=== PATIENT | female | born 1935 | race Caucasian/White ===

== ENCOUNTER 2018-02-12 17:00 | Observation (INO) | payer OTHER ==
[2018-02-12 18:16] VITALS: BMI 25.0
[2018-02-12] MEDS ORDERED: VANCOMYCIN 1,000 MG in DEXTROSE 5%-WATER - 250 ML IVPB ONE (18:57)
[2018-02-12] MEDS ORDERED: PIPERACILLIN/TAZOB 3.375 GM 3.375 GM in DEXTROSE 5%-WATER - 50 ML IVPB ONE (18:57)
--- NOTE | 2018-02-12 18:57 | PDOC ---
History of Present Illness - General Chief Complaint: Vomiting/Diarrhea Stated Complaint: FEVER, NAUSEA, DIARRHEA. CHEMOTHERAPY Time Seen by Provider: 02/12/18 17:59 History Source: Patient Exam Limitations: No Limitations - History of Present Illness Initial Comments: 02/12/18 18:44 82 yo F with a hx of HTN, right leg DVT (Nov 2017; on xarelto) and Stage 4 metastatic cancer disease (unknown origin, dx in Sep 2016, on Gemcitabine since q 2 weeks next dose tomorrow, followed by Dr. Cristy Rebollar [facility]) presents to the emergency department with fever, dysuria, and diarrhea. Per the patient, she states she has been having fever for the past 1-2 days with a temperature at 101F. In addition, she has been having dysuria that has been ongoing for 1 week with reported improvement. She began having diarrhea today with poor appetite and PO intake since yesterday. The patient contacted [facility] Snyder and they relayed that they would like a fever work up and be contacted afterwords (number provided was [phone]). Denies the following: headaches, visual changes, ears nose throat pain, chest pain, SOB, nausea, vomiting, abdominal pain, hematuria, hematochezia, and increase leg pain. Did not take home dose of zarelto and benicar today. Allergies: oxalipatin Social: Denies tobacco, alcohol, and substance abuse Past History - Past Medical History Allergies/Adverse Reactions: Allergies Allergy/AdvReac Type Severity Reaction Status Date / Time oxaliplatin Allergy Severe Swelling Verified 02/12/18 18:08 Home Medications: Ambulatory Orders Olmesartan Medoxomil [Benicar -] 40 mg PO DAILY 02/21/15 Gemcitabine HCl 02/12/18 Nitrofurantoin Monohyd/M-Cryst [Macrobid -] 100 mg PO BID #14 capsule 02/12/18 Rivaroxaban [Xarelto] 2.5 mg PO DAILY 02/12/18 Anemia: No Asthma: No Cancer: Yes (STAGE 4 METASTATIC ABDOMINAL CANCER) Cardiac Disorders: No CVA: No COPD: No CHF: No DVT: Yes (RIGHT LEG) Dementia: No Diabetes: No GI Disorders: No Disorders: No HTN: Yes Hypercholesterolemia: No Liver Disease: No Seizures: No Thyroid Disease: No - Surgical History Abdominal Surgery: Yes Appendectomy: Yes (1956) Cardiac Surgery: No Cholecystectomy: Yes (MANY YRS AGO) Lung Surgery: No Neurologic Surgery: No Orthopedic Surgery: Yes (LEFT TKR 06/2013/RIGHT ROTATOR CUFF REPAIR 2010) - Suicide/Smoking/Psychosocial Hx Smoking History: Never smoked Have you smoked in the past 12 months: No Hx Alcohol Use: Yes Drug/Substance Use Hx: No Substance Use Type: Alcohol Hx Substance Use Treatment: No Review of Systems - Review of Systems Able to Perform ROS?: Yes Is the patient limited Italian proficient: No Constitutional: Yes: Fever, Weakness. No: Chills, Diaphoresis HEENTM: No: Recent change in vision, Ear Pain, Nose Pain, Throat Pain, Mouth Pain Respiratory: No: Cough, Shortness of Breath, SOB with Exertion, Hemoptysis Cardiac (ROS): No: Chest Pain, Lightheadedness, Palpitations, Syncope, Chest Tightness ABD/GI: Yes: Diarrhea, Poor Appetite, Poor Fluid Intake. No: Constipated, Nausea, Rectal Bleeding, Vomiting, Abdominal cramping, Tarry Stools : Yes: Burning, Dysuria, Urgency. No: Flank Pain, Hematuria Musculoskeletal: No: Back Pain, Joint Pain, Neck Pain Integumentary: No: Bruising, Flushing, Lesions, Lumps, Rash Neurological: No: Headache, Numbness, Tingling, Tremors, Ataxia, Dizziness Psychiatric: No: Change in Appetite Endocrine: No: Unexplained Weight Gain Hematologic/Lymphatic: No: Anemia *Physical Exam - Vital Signs Last Vital Signs Temp Pulse Resp BP Pulse Ox 99.4 F 82 18 185/82 H 98 02/12/18 17:37 02/12/18 17:37 02/12/18 17:37 02/12/18 17:37 02/12/18 17:37 - Physical Exam General Appearance: Yes: Nourished, Appropriately Dressed. No: Apparent Distress, Intoxicated HEENT: positive: EOMI, ISHA, Normal Voice, Symmetrical, Pharynx Normal, Hearing Grossly Normal. negative: Pale Conjunctivae, Scleral Icterus (R), Scleral Icterus (L), Muffled/Hoarse voice, Pharyngeal Erythema, Tonsillar Exudate, Tonsillar Erythema, Nasal Congestion, Sinus Tenderness, Excessive drooling Neck: positive: Trachea midline. negative: Tender, Lymphadenopathy (R), Lymphadenopathy (L), Tender lateral, Tender midline Respiratory/Chest: positive: Lungs Clear, Normal Breath Sounds. negative: Chest Tender, Respiratory Distress, Accessory Muscle Use, Crackles, Rales, Rhonchi, Stridor, Wheezing, Hyperresonant Cardiovascular: positive: Regular Rhythm, Regular Rate, S1, S2. negative: Systolic Murmur Gastrointestinal/Abdominal: positive: Normal Bowel Sounds, Hernia (present and reducible). negative: Tender Lymphatic: negative: Adenopathy Musculoskeletal: positive: Normal Inspection. negative: CVA Tenderness, Vertebral Tenderness Extremity: positive: Normal Capillary Refill, Normal Range of Motion. negative : Normal Inspection (mild bilateral swelling in LE. ), Tender, Calf Tenderness, Erythema Integumentary: positive: Normal Color, Dry, Warm, Other (hot to the touch) Neurologic: positive: guide dog trainer II-XII NML intact, Fully Oriented, Alert, Normal Mood/ Affect, Normal Response, Motor Strength 5/5. negative: EOM Palsy, Sensory Deficit Moderate Sedation - Procedure Monitoring Vital Signs: Procedure Monitoring Vital Signs Temperature 99.4 F 02/12/18 17:37 Pulse Rate 82 02/12/18 17:37 Respiratory Rate 18 02/12/18 17:37 Blood Pressure 185/82 H 02/12/18 17:37 O2 Sat by Pulse Oximetry (%) 98 02/12/18 17:37 ED Treatment Course - LABORATORY CBC & Chemistry Diagram: 02/12/18 19:00 02/12/18 19:00 Medical Decision Making - Medical Decision Making 82 yo F with a hx of HTN, right leg DVT (Nov 2017; on xarelto) and Stage 4 metastatic cancer disease (unknown origin, dx in Sep 2016, on Gemcitabine since q 2 weeks next dose tomorrow, followed by Dr. Cristy Rebollar [facility]) presents to the emergency department with fever, dysuria, and diarrhea Initial vitals: Initial Vital Signs Temp Pulse Resp BP Pulse Ox 99.4 F 82 18 185/82 H 98 02/12/18 17:37 02/12/18 17:37 02/12/18 17:37 02/12/18 17:37 02/12/18 17:37 Work up: patient was presented to ED with referral from Dr. Rebollar her oncologist at [facility]. They requested a fever work up. patient admits to dysuria and fevers and diarrhea, likely source of fever from urine but will assess fever source from other sources. Laboratory Tests 02/12/18 02/12/18 02/12/18 19:00 19:00 19:00 WBC 8.9 RBC 2.98 L Hgb 9.6 L Hct 29.9 L MCV 100.3 H MCH 32.2 MCHC 32.0 RDW 15.9 H Plt Count 260 MPV 7.6 Absolute Neuts (auto) 6.6 Neutrophils % 72.6 Lymphocytes % 13.9 Monocytes % 12.6 H Eosinophils % 0.4 Basophils % 0.5 PT with INR 18.9 H INR 1.71 H PTT (Actin FS) 31.8 Sodium 132 L Potassium 3.9 Chloride 103 Carbon Dioxide 21 L Anion Gap 8 BUN 21 H Creatinine 1.1 Creat Clearance w eGFR 47.79 Random Glucose 91 Lactic Acid Calcium 8.8 Total Bilirubin 0.5 AST 18 ALT 15 Alkaline Phosphatase 83 Troponin I Total Protein 6.5 Albumin 3.4 L Urine Color Urine Appearance Urine pH Ur Specific [place] Urine Protein Urine Glucose (UA) Urine Ketones Urine Blood Urine Nitrite Urine Bilirubin Urine Urobilinogen Ur Leukocyte Esterase Urine RBC Urine WBC Ur Epithelial Cells Urine Bacteria Influenza A (Rapid) Influenza B (Rapid) 02/12/18 02/12/18 02/12/18 19:00 19:00 19:00 WBC RBC Hgb Hct MCV MCH MCHC RDW Plt Count MPV Absolute Neuts (auto) Neutrophils % Lymphocytes % Monocytes % Eosinophils % Basophils % PT with INR INR PTT (Actin FS) Sodium Potassium Chloride Carbon Dioxide Anion Gap BUN Creatinine Creat Clearance w eGFR Random Glucose Lactic Acid 0.7 Calcium Total Bilirubin AST ALT Alkaline Phosphatase Troponin I Cancelled < 0.03 Total Protein Albumin Urine Color Urine Appearance Urine pH Ur Specific [place] Urine Protein Urine Glucose (UA) Urine Ketones Urine Blood Urine Nitrite Urine Bilirubin Urine Urobilinogen Ur Leukocyte Esterase Urine RBC Urine WBC Ur Epithelial Cells Urine Bacteria Influenza A (Rapid) Influenza B (Rapid) 02/12/18 02/12/18 19:20 20:20 WBC RBC Hgb Hct MCV MCH MCHC RDW Plt Count MPV Absolute Neuts (auto) Neutrophils % Lymphocytes % Monocytes % Eosinophils % Basophils % PT with INR INR PTT (Actin FS) Sodium Potassium Chloride Carbon Dioxide Anion Gap BUN Creatinine Creat Clearance w eGFR Random Glucose Lactic Acid Calcium Total Bilirubin AST ALT Alkaline Phosphatase Troponin I Total Protein Albumin Urine Color Yellow Urine Appearance Cloudy Urine pH 5.5 Ur Specific [place] 1.015 Urine Protein 2+ H Urine Glucose (UA) Negative Urine Ketones Negative Urine Blood 3+ H Urine Nitrite Positive Urine Bilirubin Negative Urine Urobilinogen 0.2 Ur Leukocyte Esterase 3+ H Urine RBC 10-20 Urine WBC >100 Ur Epithelial Cells None seen Urine Bacteria 4+ Influenza A (Rapid) Negative Influenza B (Rapid) Negative Patient was signed out by Dr. Lucero to Dr. Dimas *DC/Admit/Observation/Transfer Diagnosis at time of Disposition: Dehydration UTI (urinary tract infection) Qualifiers: Urinary tract infection type: site unspecified Hematuria presence: without hematuria Qualified Code(s): N39.0 - Urinary tract infection, site not specified Diarrhea Qualifiers: Diarrhea type: unspecified type Qualified Code(s): R19.7 - Diarrhea, unspecified - Discharge Dispostion Disposition: AGAINST MEDICAL ADVICE Condition at time of disposition: Stable - Prescriptions Prescriptions: Nitrofurantoin Monohyd/M-Cryst [Macrobid -] 100 mg PO BID #14 capsule - Referrals Referrals: Cristy Garcia MD [Primary Care Provider] - - Patient Instructions Additional Instructions: Your leaving AGAINST MEDICAL ADVICE. By evening AGAINST MEDICAL ADVICE U except for anything adverse that may happen. Possible adverse outcome would could include but not limited to sepsis, permanent disability and . I sent a prescription to your pharmacy for Macrobid get the prescription filled and take it twice a day for 7 days. Call your oncologist Dr. Cristy Rebollar in the morning and get an appointment to follow-up with her as soon as possible. Return to the emergency department immediately with ANY new, persistent or worsening symptoms. Continue any medications as previously prescribed by your physician. You should follow up with your primary doctor as soon as possible regarding today's emergency department visit. . Please make sure your doctor reviews the results of your emergency evaluation. Thank you for coming to the Emergency Department today for your care. It was a pleasure to see you today. Please note that your evaluation is INCOMPLETE until you follow-up with your doctor. - Post Discharge Activity
[2018-02-12 19:17] LABS: BASO % 0.5 % (0-2.0); EOS % 0.4 % (0-4.5); HEMATOCRIT 29.9 % (32.4-45.2); HEMOGLOBIN 9.6 GM/dl (10.7-15.3); LYMPH % 13.9 % (8-40); MCH 32.2 pg (25.7-33.7); MEAN CELL VOLUME 100.3 fl (80-96); MEAN PLT VOLUME 7.6 fl (7.5-11.1); MONO % 12.6 % (3.8-10.2); NEUT % 72.6 % (42.8-82.8); PLATELET COUNT 260 K/MM3 (134-434); RBC 2.98 M/mm3 (3.60-5.2); RDW 15.9 % (11.6-15.6); WHITE BLOOD COUNT 8.9 K/mm3 (4.0-10.8)
[2018-02-12] MEDS ORDERED: VANCOMYCIN 1,000 MG VIAL (RESTRICTED TO ID ONLY) ONE (19:22)
[2018-02-12] MEDS ORDERED: PIPERACILLIN/TAZOBACTAM 3.375 GM VIAL IVPB ONE (19:23)
[2018-02-12 19:31] LABS: ACTIVATED PTT 31.8 SECONDS (25.2-36.5)
[2018-02-12 19:33] LABS: PH,URINE 5.5 (4.5-8); URINE APPEARANCE Cloudy; URINE BILIRUBIN Negative (NEGATIVE); URINE COLOR Yellow; URINE GLUCOSE (UA) Negative (NEGATIVE); URINE KETONE Negative (NEGATIVE); URINE LEUK ESTERASE 3+ (NEGATIVE); URINE NITRITE Positive (NEGATIVE); URINE PROTEIN 2+ (NEGATIVE); URINE UROBILINOGEN 0.2 (0.2-1.0)
[2018-02-12 19:33] LABS: ALBUMIN 3.4 g/dl (3.5-5.0); ALK PHOS 83 U/L (32-92); ANION GAP 8 MMOL/L (8-16); BILIRUBIN,TOTAL 0.5 mg/dl (0.2-1.0); BLOOD UREA NITROGEN 21 mg/dl (7-18); CALCIUM 8.8 mg/dl (8.4-10.2); CHLORIDE 103 mmol/L (98-107); CO2 21 mmol/L (22-28); CREATININE 1.1 mg/dl (0.6-1.3); GLUCOSE,RANDOM 91 mg/dl (74-106); POTASSIUM 3.9 mmol/L (3.5-5.1); SGOT/AST 18 U/L (10-42); SGPT/ALT 15 U/L (10-40); SODIUM 132 mmol/L (136-145); TOT PROT 6.5 g/dl (6.4-8.3)
[2018-02-12 19:35] LABS: INR 1.71 (0.82-1.09); PROTHROMBIN TIME (PATIENT) 18.9 SEC (10.2-13.0)
[2018-02-12] MEDS ORDERED: SODIUM CHLORIDE 0.9% 500 ML INFUS.BAG IV ONE (19:36)
--- NOTE | 2018-02-12 19:36 | PDOC ---
Attending Attestation - Resident Resident Name: JuliaWiliam - ED Attending Attestation I have performed the following: I have examined & evaluated the patient, The case was reviewed & discussed with the resident, I agree w/resident's findings & plan - HPI HPI: 02/12/18 19:34 82 yo F with a hx of HTN, right leg DVT (Nov 2017; on xarelto) and Stage 4 metastatic cancer disease (unknown origin, dx in Sep 2016, likely abdominal origin s/p ex lap, on Gemcitabine since q 2 weeks next dose tomorrow, followed by Dr. Cristy Rebollar [facility]) presents to the emergency department with fever, dysuria, and diarrhea. +fever for the past 1-2 days with a temperature at 101F. In addition, she has been having dysuria and increased urinary urgency/frequency x 1 week. starting yesterday, nonbloody, watery diarrhea, and difficulty keeping up with PO intake - Physicial Exam PE: 02/12/18 19:35 NAD, warm to touch. neck supple, oral mucosa dry. RRR, lungs clear, abdomen soft NTND, no cvat. WWP, no edema. SHEIKH x4. left anterior chest wall port palpated - Medical Decision Making 02/12/18 19:35 hpi as documented VS here wnl, but historical fever and immunocompromised septic work up pending including CBC/chem, lactic, UA, urine cx, blood cx, cxr, influenza IV hydration/tylenol IV abx zosyn/vancomycin for empiric coverage s/o pending labs and workup, hydration and likely admit given immunocompromised state/fever, dehydration 02/12/18 19:37
[2018-02-12] MEDS ORDERED: ACETAMINOPHEN 1000 MG/100 ML VIAL (NON FORMULARY) IVPB ONE (19:37)
--- NOTE | 2018-02-12 19:38 | PDOC ---
*Physical Exam - Vital Signs Last Vital Signs Temp Pulse Resp BP Pulse Ox 99.4 F 82 18 185/82 H 98 02/12/18 17:37 02/12/18 17:37 02/12/18 17:37 02/12/18 17:37 02/12/18 17:37 ED Treatment Course - LABORATORY CBC & Chemistry Diagram: 02/12/18 19:00 02/12/18 19:00 - ADDITIONAL ORDERS Additional order review: Laboratory Results 02/12/18 02/12/18 02/12/18 19:20 19:00 19:00 PT with INR INR PTT (Actin FS) Sodium 132 L Potassium 3.9 Chloride 103 Carbon Dioxide 21 L Anion Gap 8 BUN 21 H Creatinine 1.1 Creat Clearance w eGFR 47.79 Random Glucose 91 Calcium 8.8 Total Bilirubin 0.5 AST 18 ALT 15 Alkaline Phosphatase 83 Troponin I Cancelled Total Protein 6.5 Albumin 3.4 L Urine Color Yellow Urine Appearance Cloudy Urine pH 5.5 Ur Specific [place] 1.015 Urine Protein 2+ H Urine Glucose (UA) Negative Urine Ketones Negative Urine Blood 3+ H Urine Nitrite Positive Urine Bilirubin Negative Urine Urobilinogen 0.2 Ur Leukocyte Esterase 3+ H 02/12/18 19:00 PT with INR 18.9 H INR 1.71 H PTT (Actin FS) 31.8 Sodium Potassium Chloride Carbon Dioxide Anion Gap BUN Creatinine Creat Clearance w eGFR Random Glucose Calcium Total Bilirubin AST ALT Alkaline Phosphatase Troponin I Total Protein Albumin Urine Color Urine Appearance Urine pH Ur Specific [place] Urine Protein Urine Glucose (UA) Urine Ketones Urine Blood Urine Nitrite Urine Bilirubin Urine Urobilinogen Ur Leukocyte Esterase 02/12/18 19:00 RBC 2.98 L MCV 100.3 H MCHC 32.0 RDW 15.9 H MPV 7.6 Neutrophils % 72.6 Lymphocytes % 13.9 Monocytes % 12.6 H Eosinophils % 0.4 Basophils % 0.5 - Medications Given in the ED: ED Medications Discontinued Medications Generic Name Dose Route Start Last Admin Trade Name Freq PRN Reason Stop Dose Admin Piperacillin Sod/Tazobactam 50 mls @ 100 mls/hr 02/12/18 18:57 02/12/18 19:25 Sod 3.375 gm/ Dextrose IVPB 02/12/18 19:26 100 mls/hr ONCE ONE Administration Protocol Progress Note - Progress Note Progress Note: Care of this patient was transferred to co from Dr. null at 1900 hrs. 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 Patient comes in complaining of nausea and diarrhea as well as fevers and urinary symptoms. Patient has a workup pending. Patient was seen by the medical historian who discussed patient's case with her oncologist who requested a septic workup be done. Patient most likely will need an observation admission for hydration and antibiotics. EKG shows normal sinus rhythm with a left axis deviation and old anterior septal [place] otherwise no acute ST-T wave changes Patient has normal white count with no left shift Patient's chemistries do show some mild dehydration with a B UN of 21 Patient's urinalysis is positive for urinary tract infection. Patient given IV vancomycin and Zosyn Discussed with the physician on-call for [facility] doctor Qiana, who agrees with a observation admission for some IV hydration, antibiotics and reassess patient in the morning to see how she is doing and patient will be placed in observation under the hospitalist service. 20:30 Patient's daughter does not want patient to be admitted to she prefers that she be able to take her home on some by mouth antibiotics and they will follow up with her doctor at [facility] in the morning. Daughter understands that in order to do that her mother has to sign out AGAINST MEDICAL ADVICE. Patient understands that leaving AGAINST MEDICAL ADVICE could result in a worsening of her conditions, sepsis and . Patient accepts responsibility for signing out AGAINST MEDICAL ADVICE. *DC/Admit/Observation/Transfer Diagnosis at time of Disposition: Dehydration UTI (urinary tract infection) Qualifiers: Urinary tract infection type: site unspecified Hematuria presence: without hematuria Qualified Code(s): N39.0 - Urinary tract infection, site not specified Diarrhea Qualifiers: Diarrhea type: unspecified type Qualified Code(s): R19.7 - Diarrhea, unspecified - Discharge Dispostion Disposition: AGAINST MEDICAL ADVICE Condition at time of disposition: Stable - Referrals Referrals: Cristy Garcia MD [Primary Care Provider] - - Patient Instructions Additional Instructions: Your leaving AGAINST MEDICAL ADVICE. By evening AGAINST MEDICAL ADVICE U except for anything adverse that may happen. Possible adverse outcome would could include but not limited to sepsis, permanent disability and . I sent a prescription to your pharmacy for Macrobid get the prescription filled and take it twice a day for 7 days. Call your oncologist Dr. Cristy Rebollar in the morning and get an appointment to follow-up with her as soon as possible. Return to the emergency department immediately with ANY new, persistent or worsening symptoms. Continue any medications as previously prescribed by your physician. You should follow up with your primary doctor as soon as possible regarding today's emergency department visit. . Please make sure your doctor reviews the results of your emergency evaluation. Thank you for coming to the Emergency Department today for your care. It was a pleasure to see you today. Please note that your evaluation is INCOMPLETE until you follow-up with your doctor. - Post Discharge Activity
[2018-02-12 19:52] LABS: EPI CELLS NONE SEEN /HPF; URINE BACTERIA 4+ /hpf (NEGATIVE); URINE WBC >100 (0-5)
[2018-02-12] MEDS ORDERED: ACETAMINOPHEN INJECTION 100 ML IVPB ONE (20:15)
[2018-02-12] MEDS ORDERED: SODIUM CHLORIDE 1,000 ML IV SCH (20:30)
--- NOTE | 2018-02-12 20:32 | HP ---
CHIEF COMPLAINT: PCP: HISTORY OF PRESENT ILLNESS: ER course was notable for: (1) (2) (3) Recent Travel: PAST MEDICAL HISTORY: PAST SURGICAL HISTORY: Social History: Smoking: Alcohol: Drugs: Family History: Allergies oxaliplatin Allergy (Severe, Verified 02/12/18 18:08) Swelling HOME MEDICATIONS: Home Medications Medication Instructions Recorded Olmesartan Medoxomil [Benicar -] 40 mg PO DAILY 02/21/15 Gemcitabine HCl 02/12/18 Rivaroxaban [Xarelto] 2.5 mg PO DAILY 02/12/18 REVIEW OF SYSTEMS CONSTITUTIONAL: Absent: fever, chills, diaphoresis, generalized weakness, malaise, loss of appetite, weight change HEENT: Absent: rhinorrhea, nasal congestion, throat pain, throat swelling, difficulty swallowing, mouth swelling, ear pain, eye pain, visual changes CARDIOVASCULAR: Absent: chest pain, syncope, palpitations, irregular heart rate, lightheadedness , peripheral edema RESPIRATORY: Absent: cough, shortness of breath, dyspnea with exertion, orthopnea, wheezing, stridor, hemoptysis GASTROINTESTINAL: Absent: abdominal pain, abdominal distension, nausea, vomiting, diarrhea, constipation, melena, hematochezia GENITOURINARY: Absent: dysuria, frequency, urgency, hesitancy, hematuria, flank pain, genital pain MUSCULOSKELETAL: Absent: myalgia, arthralgia, joint swelling, back pain, neck pain SKIN: Absent: rash, itching, pallor HEMATOLOGIC/IMMUNOLOGIC: Absent: easy bleeding, easy bruising, lymphadenopathy, frequent infections ENDOCRINE: Absent: unexplained weight gain, unexplained weight loss, heat intolerance, cold intolerance NEUROLOGIC: Absent: headache, focal weakness or paresthesias, dizziness, unsteady gait, seizure, mental status changes, bladder or bowel incontinence PSYCHIATRIC: Absent: anxiety, depression, suicidal or homicidal ideation, hallucinations. PHYSICAL EXAMINATION Vital Signs - 24 hr 02/12/18 02/12/18 17:37 19:30 Temperature 99.4 F 99.5 F Pulse Rate 82 Respiratory 18 Rate Blood Pressure 185/82 H O2 Sat by Pulse 98 Oximetry (%) GENERAL: Awake, alert, and fully oriented, in no acute distress. HEAD: Normal with no signs of trauma. EYES: Pupils equal, round and reactive to light, extraocular movements intact, sclera anicteric, conjunctiva clear. No lid lag. EARS, NOSE, THROAT: Ears normal, nares patent, oropharynx clear without exudates. Moist mucous membranes. NECK: Normal range of motion, supple without lymphadenopathy, JVD, or masses. LUNGS: Breath sounds equal, clear to auscultation bilaterally. No wheezes, and no crackles. No accessory muscle use. HEART: Regular rate and rhythm, normal S1 and S2 without murmur, rub or gallop. ABDOMEN: Soft, nontender, not distended, normoactive bowel sounds, no guarding, no rebound, no masses. No hepatomegaly or splenomegaly. MUSCULOSKELETAL: Normal range of motion at all joints. No bony deformities or tenderness. No CVA tenderness. UPPER EXTREMITIES: 2+ pulses, warm, well-perfused. No cyanosis. No clubbing. No peripheral edema. LOWER EXTREMITIES: 2+ pulses, warm, well-perfused. No calf tenderness. No peripheral edema. NEUROLOGICAL: Cranial nerves II-XII intact. Normal speech. Normal gait. PSYCHIATRIC: Cooperative. Good eye contact. Appropriate mood and affect. SKIN: Warm, dry, normal turgor, no rashes or lesions noted, normal capillary refill. Laboratory Results - last 24 hr 02/12/18 02/12/18 02/12/18 19:00 19:00 19:00 WBC 8.9 RBC 2.98 L Hgb 9.6 L Hct 29.9 L MCV 100.3 H MCH 32.2 MCHC 32.0 RDW 15.9 H Plt Count 260 MPV 7.6 Absolute Neuts (auto) 6.6 Neutrophils % 72.6 Lymphocytes % 13.9 Monocytes % 12.6 H Eosinophils % 0.4 Basophils % 0.5 PT with INR 18.9 H INR 1.71 H PTT (Actin FS) 31.8 Sodium 132 L Potassium 3.9 Chloride 103 Carbon Dioxide 21 L Anion Gap 8 BUN 21 H Creatinine 1.1 Creat Clearance w eGFR 47.79 Random Glucose 91 Calcium 8.8 Total Bilirubin 0.5 AST 18 ALT 15 Alkaline Phosphatase 83 Troponin I Total Protein 6.5 Albumin 3.4 L Urine Color Urine Appearance Urine pH Ur Specific [place] Urine Protein Urine Glucose (UA) Urine Ketones Urine Blood Urine Nitrite Urine Bilirubin Urine Urobilinogen Ur Leukocyte Esterase Urine RBC Urine WBC Ur Epithelial Cells Urine Bacteria 02/12/18 02/12/18 02/12/18 19:00 19:00 19:20 WBC RBC Hgb Hct MCV MCH MCHC RDW Plt Count MPV Absolute Neuts (auto) Neutrophils % Lymphocytes % Monocytes % Eosinophils % Basophils % PT with INR INR PTT (Actin FS) Sodium Potassium Chloride Carbon Dioxide Anion Gap BUN Creatinine Creat Clearance w eGFR Random Glucose Calcium Total Bilirubin AST ALT Alkaline Phosphatase Troponin I Cancelled < 0.03 Total Protein Albumin Urine Color Yellow Urine Appearance Cloudy Urine pH 5.5 Ur Specific [place] 1.015 Urine Protein 2+ H Urine Glucose (UA) Negative Urine Ketones Negative Urine Blood 3+ H Urine Nitrite Positive Urine Bilirubin Negative Urine Urobilinogen 0.2 Ur Leukocyte Esterase 3+ H Urine RBC 10-20 Urine WBC >100 Ur Epithelial Cells None seen Urine Bacteria 4+ ASSESSMENT/PLAN:
[2018-02-12 21:52] VITALS: BP 121/92; PULSE 95; TEMP 100.2
[2018-02-13] MEDS ORDERED: CEFTRIAXONE 1 GM in DEXTROSE 5%-WATER - 50 ML IVPB SCH (10:00)
--- NOTE | 2018-02-13 12:16 | EKG ---
Test Reason : Blood Pressure : / mmHG Vent. Rate : 096 BPM Atrial Rate : 096 BPM P-R Int : 202 ms QRS Dur : 124 ms QT Int : 354 ms P-R-T Axes : 077 -39 072 degrees QTc Int : 447 ms NORMAL SINUS RHYTHM LEFT AXIS DEVIATION ANTEROSEPTAL INFARCT , AGE UNDETERMINED ABNORMAL ECG NO PREVIOUS ECGS AVAILABLE Confirmed by ALCIRA SINGH MD ([id number]) on 02/13/2018 12:15:57 PM Referred By: MD LEWIS Confirmed By:ALCIRA SINGH MD
== END 2018-02-12 22:09 | disposition left against medical advice (07) ==
LOC: FER 17:00 → FM/S 20:05 → FER 22:09
PROVIDERS: ADMIT Internal Medicine; ATTEND Internal Medicine
PROC: 3E03329 Introduction of Other Anti-infective into Peripheral Vein, Percutaneous Approach (ICD-10-PCS; principal; 2018-02-12)
PROC: 3E0337Z Introduction of Electrolytic and Water Balance Substance into Peripheral Vein, Percutaneous Approach (ICD-10-PCS; 2018-02-12)
PROC: 3E033NZ Introduction of Analgesics, Hypnotics, Sedatives into Peripheral Vein, Percutaneous Approach (ICD-10-PCS; 2018-02-12)
DX: E86.0 Dehydration (principal); N39.0 Urinary tract infection, site not specified; R19.7 Diarrhea, unspecified; I10 Essential (primary) hypertension; I82.501 Chronic embolism and thrombosis of unspecified deep veins of right lower extremity; Z79.01 Long term (current) use of anticoagulants; C79.89 Secondary malignant neoplasm of other specified sites; Z96.651 Presence of right artificial knee joint; Z92.21 Personal history of antineoplastic chemotherapy
CPT/HCPCS: 36415; 71045-TC-FY; 80053; 81003; 81015; 83605; 84484; 85025; 85610; 85730; 87040; 87086; 87186; 87804; 93005; 96365; 96368; 96375; 99283-25; G0378; J0131

== ENCOUNTER 2018-02-28 19:38 | Inpatient (IN) | payer OTHER ==
--- NOTE | 2018-02-28 20:22 | PDOC ---
History of Present Illness - General History Source: Patient Exam Limitations: No Limitations - History of Present Illness Initial Comments: 02/28/18 22:00 A portion of this note was documented by scribe services under my direction. I have reviewed the details of the note, within reason, and agree with the documentation with the following case summary and management plan written by me. Patient treated in the ED. Nursing notes are reviewed and incorporated into the medical decision-making. Vital signs reviewed. Assessment and plan: This is an 82-year-old female who comes in with generalized weakness and fell secondary to generalized weakness. Patient fell and after she fell she was so weak she was unable to get up for about 45 minutes until she could get herself over to the phone and call a neighbor. Patient was brought in by EMS. Patient denies any injuries from the fall but is complaining of generalized weakness. Patient was noted to be febrile here in the emergency room on arrival and was recently treated for a urinary tract infection Workup initiated including head CT CBC, comp, blood cultures, urine culture, blood cultures, EKG, chest x-ray. EKG shows normal sinus rhythm at a rate of 95 there is a first-degree AV block Celexa axis deviation and incomplete right bundle branch block no acute ST-T wave changes. Chest x-ray no acute pathology heart does appear to be somewhat enlarged. Patient's white count was elevated with a left shift and her urine was positive for urinary tract infection Patient given ceftriaxone and will be placed in observation under the hospitalist service. 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 The patient reports she was trying to use the bathroom, when she had a sudden onset of generalized weakness and she fell. Pt denies head injury and LOC. The patient notes she was on the floor for 45 minutes, unable to stand due to generalized weakness, until her neighbor called EMS. Patient also reports slight chills, slight nonproductive cough for one day. Upon arrival to ED, patient has a fever of 100.1 F. Patient was seen in the ED last week and was diagnosed with a UTI and discharged home with a 5 day course of antibiotics. Pt was compliant with antibiotics and finished the medication. Patient denies chest pain and SOB. Denies nausea, vomiting, or diarrhea. Denies lightheadedness or dizziness. Denies any other symptoms. PAST MEDICAL HISTORY: HTN, right leg DVT (Nov 2017, on xarelto), and Stage 4 metastatic cancer disease (on chemotherapy, last chemotherapy 02/26/17. PAST SURGICAL HISTORY: no significant history FAMILY HISTORY: no pertinent history SOCIAL HISTORY: Pt lives at home MEDICATIONS: reviewed ALLERGIES: As per nursing notes General: +fevers. +chills, +generalized weakness. +fall. no weight loss HEENT: No change in vision. No sore throat,. No ear pain CardioVascular: No chest pain or shortness of breath Respiratory: +cough. No wheezing. Gastrointestinal: no nausea, vomiting, diarrhea or constipation, No rectal bleeding Genitourinary: No dysuria, hematuria, or frequency Musculoskeletal: No joint or muscle pain or swelling Neurologic: No headache, vertigo, dizziness or loss of consciousness Psychiatric: nor depression Skin: No rashes or easy bruising Endocrine: no increased thirst or abnormal weight change Allergic: no skin or latex allergy All other systems reviewed and normal General:+Patient complains of mild discomfort of the lower extremities that she attributes to fall. Well-nourished well-developed individual, no acute distress HEENT: Throat: Normal, tonsils normal, no erythema or exudate. No evidence of trauma. Neck: Supple, no meningeal signs, no lymphadenopathy. No tenderness on palpation of cervical spine. Eyes::Pupils equal reactive and round, extraocular motion intact Chest: Nontender to palpation Cardiac:+tachycardia. S1-S2 normal, regular rhythm, no murmurs rubs or gallops Respiratory: Lungs clear to auscultation bilateral Abdomen:+there is a large hernia in the anterior abdominal wall, nontender and reducible. No point tenderness on palpation on pelvis. Soft, nondistended, normal bowel sounds. Extremities:+ 2+ non-pitting edema on lower extremities bilaterally. Warm, dry, no cyanosis, clubbing, or edema Skin:+multiple blood thinner injection sites none of which appear to be infected. +left forearm contusion, no bony tenderness.No rashes Neuro: Alert and oriented x3, nonfocal exam, grossly intact, normal gait Psych: Normal mood and affect <Dory John - Last Filed: 02/28/18 22:24> - General Chief Complaint: Injury Stated Complaint: FELL Time Seen by Provider: 02/28/18 20:14 Past History - Past Medical History Anemia: No Asthma: No Cancer: Yes (STAGE 4 METASTATIC ABDOMINAL CANCER) Cardiac Disorders: No CVA: No COPD: No CHF: No DVT: Yes (RIGHT LEG) Dementia: No Diabetes: No GI Disorders: No Disorders: Yes (UTI) HTN: Yes Hypercholesterolemia: No Liver Disease: No Seizures: No Thyroid Disease: No - Surgical History Abdominal Surgery: Yes Appendectomy: Yes (1956) Cardiac Surgery: No Cholecystectomy: Yes (MANY YRS AGO) Lung Surgery: No Neurologic Surgery: No Orthopedic Surgery: Yes (LEFT TKR 06/2013/RIGHT ROTATOR CUFF REPAIR 2010) - Suicide/Smoking/Psychosocial Hx Smoking History: Never smoked Have you smoked in the past 12 months: No Hx Alcohol Use: Yes Drug/Substance Use Hx: No Substance Use Type: Alcohol Hx Substance Use Treatment: No <Ju Chaudhari I - Last Filed: 02/28/18 22:04> <Dory John - Last Filed: 02/28/18 22:24> - Past Medical History Allergies/Adverse Reactions: Allergies Allergy/AdvReac Type Severity Reaction Status Date / Time oxaliplatin Allergy Severe Swelling Verified 02/12/18 18:08 Home Medications: Ambulatory Orders Olmesartan Medoxomil [Benicar -] 40 mg PO DAILY 02/21/15 Gemcitabine HCl 02/12/18 Rivaroxaban [Xarelto] 2.5 mg PO DAILY 02/12/18 *Physical Exam - Vital Signs Last Vital Signs Temp Pulse Resp BP Pulse Ox 100.1 F H 109 H 19 182/90 H 95 02/28/18 19:39 02/28/18 19:39 02/28/18 19:39 02/28/18 19:39 02/28/18 19:39 <Ju Chaudhari I - Last Filed: 02/28/18 22:04> - Vital Signs Last Vital Signs Temp Pulse Resp BP Pulse Ox 100.1 F H 109 H 19 182/90 H 95 02/28/18 19:39 02/28/18 19:39 02/28/18 19:39 02/28/18 19:39 02/28/18 19:39 <Dory John - Last Filed: 02/28/18 22:24> Moderate Sedation - Procedure Monitoring Vital Signs: Procedure Monitoring Vital Signs Temperature 100.1 F H 02/28/18 19:39 Pulse Rate 109 H 02/28/18 19:39 Respiratory Rate 19 02/28/18 19:39 Blood Pressure 182/90 H 02/28/18 19:39 O2 Sat by Pulse Oximetry (%) 95 02/28/18 19:39 <Ju Chaudhari I - Last Filed: 02/28/18 22:04> - Procedure Monitoring Vital Signs: Procedure Monitoring Vital Signs Temperature 100.1 F H 02/28/18 19:39 Pulse Rate 109 H 02/28/18 19:39 Respiratory Rate 02/28/18 19:39 Blood Pressure 182/90 H 02/28/18 19:39 O2 Sat by Pulse Oximetry (%) 95 02/28/18 19:39 <Dory John - Last Filed: 02/28/18 22:24> ED Treatment Course - LABORATORY CBC & Chemistry Diagram: 02/28/18 20:50 02/28/18 20:50 <Ju Chaudhari I - Last Filed: 02/28/18 22:04> - LABORATORY CBC & Chemistry Diagram: 02/28/18 20:50 02/28/18 20:50 - ADDITIONAL ORDERS Additional order review: 02/28/18 20:50 RBC 2.57 L MCV 98.6 H MCHC 33.1 RDW 15.0 MPV 8.0 Neutrophils % No Result Required. Lymphocytes % No Result Required. <Dory John - Last Filed: 02/28/18 22:24> Medical Decision Making - Medical Decision Making 02/28/18 22:22 case discussed with hospitalist at 22:23 <Dory John - Last Filed: 02/28/18 22:24> *DC/Admit/Observation/Transfer - Discharge Dispostion Decision to Admit order: Yes <Ju Chaudhari I - Last Filed: 02/28/18 22:04> - Attestations Scribe Attestion: 02/28/18 21:19 Documentation prepared by Dory John, acting as medical cost consultant for Ju Chaudhari MD <Dory John - Last Filed: 02/28/18 22:24> Diagnosis at time of Disposition: UTI (urinary tract infection) Qualifiers: Urinary tract infection type: acute cystitis Hematuria presence: without hematuria Qualified Code(s): N30.00 - Acute cystitis without hematuria Fever Qualifiers: Encounter type: subsequent encounter - Discharge Dispostion Condition at time of disposition: Good - Referrals Referrals: Cristy Garcia MD [Primary Care Provider] - - Patient Instructions - Post Discharge Activity
[2018-02-28 21:14] LABS: HEMATOCRIT 25.4 % (32.4-45.2); HEMOGLOBIN 8.4 GM/dl (10.7-15.3); MCH 32.6 pg (25.7-33.7); MCHC 33.1 g/dl (32.0-36.0); MEAN CELL VOLUME 98.6 fl (80-96); PLATELET COUNT 118 K/MM3 (134-434); RBC 2.57 M/mm3 (3.60-5.2); WHITE BLOOD COUNT 12.3 K/mm3 (4.0-10.8)
[2018-02-28 21:25] LABS: PH,URINE 5.5 (4.5-8); URINE APPEARANCE Clear; URINE BILIRUBIN Negative (NEGATIVE); URINE COLOR Yellow; URINE GLUCOSE (UA) Negative (NEGATIVE); URINE KETONE Negative (NEGATIVE); URINE LEUK ESTERASE 1+ (NEGATIVE); URINE NITRITE Positive (NEGATIVE); URINE PROTEIN 3+ (NEGATIVE); URINE UROBILINOGEN 0.2 (0.2-1.0)
[2018-02-28 21:28] LABS: ALBUMIN 3.3 g/dl (3.5-5.0); ALK PHOS 70 U/L (32-92); ANION GAP 3 MMOL/L (8-16); BILIRUBIN,TOTAL 0.6 mg/dl (0.2-1.0); BLOOD UREA NITROGEN 24 mg/dl (7-18); CALCIUM 8.4 mg/dl (8.4-10.2); CHLORIDE 105 mmol/L (98-107); CO2 21 mmol/L (22-28); GLUCOSE,RANDOM 111 mg/dl (74-106); POTASSIUM 3.8 mmol/L (3.5-5.1); SGOT/AST 131 U/L (10-42); SGPT/ALT 118 U/L (10-40); SODIUM 129 mmol/L (136-145); TOT PROT 6.2 g/dl (6.4-8.3)
[2018-02-28 21:31] LABS: URINE BACTERIA 4+ /hpf (NEGATIVE); URINE WBC 60-100 (0-5)
[2018-02-28 21:35] LABS: PLATELET ESTIMATE SLT DECREASE
[2018-02-28] MEDS ORDERED: CEFTRIAXONE 1,000 MG in DEXTROSE 5%-WATER - 50 ML IVPB ONE (21:51)
[2018-02-28] MEDS ORDERED: cefTRIAXone SODIUM 1 GM VIAL ONE (21:57)
[2018-02-28] MEDS ORDERED: ACETAMINOPHEN 500 MG TABLET (FP) PO ONE (22:19)
[2018-02-28] MEDS ORDERED: ACETAMINOPHEN 500 MG TABLET (FP) ONE (22:21)
--- NOTE | 2018-02-28 23:22 | HP ---
CHIEF COMPLAINT: fall , weakness, fever PCP: Dr. Rebollar HISTORY OF PRESENT ILLNESS: 82yo w/ HTN, melanoma on face, right leg DVT (Nov 2017; on xarelto) and Stage 4 metastatic cancer disease (unknown origin, dx in Sep 2016) with last chemo cycle 02/26/18 reports that she fell at home, unwitnessed around 6pm on 02/28/17. She denied LOC or hitting her head. She reports falling on her sacrum. Patient layed on ground for about 1 hour and then called 911. She also c/o some chills and subjective fever since her last chemo cycle. Patient reports that she receives her oncology care at [facility] with Dr. Rebollar. ER course was notable for: (1) head CT (2) ceftriaxone (3) tylenol Recent Travel: denied PAST MEDICAL HISTORY: melanoma (s/p excision ), abdominal ca (colon?) PAST SURGICAL HISTORY: melanoma excision Social History: Smoking: no Alcohol: occasional wine Drugs: no Family History: none reported Allergies oxaliplatin Allergy (Severe, Verified 02/12/18 18:08) Swelling HOME MEDICATIONS: Home Medications Medication Instructions Recorded Olmesartan Medoxomil [Benicar -] 40 mg PO DAILY 02/21/15 Gemcitabine HCl 02/12/18 Rivaroxaban [Xarelto] 2.5 mg PO DAILY 02/12/18 REVIEW OF SYSTEMS CONSTITUTIONAL: Absent: , diaphoresis, loss of appetite, weight change Present - fever, chills, generalized weakness, malaise, HEENT: Absent: rhinorrhea, nasal congestion, throat pain, throat swelling, difficulty swallowing, mouth swelling, ear pain, eye pain, visual changes CARDIOVASCULAR: Absent: chest pain, syncope, palpitations, irregular heart rate, lightheadedness , present- peripheral edema RESPIRATORY: Absent: cough, shortness of breath, dyspnea with exertion, orthopnea, wheezing, stridor, hemoptysis GASTROINTESTINAL: Absent: abdominal pain, abdominal distension, nausea, vomiting, diarrhea, constipation, melena, hematochezia GENITOURINARY: Absent: dysuria, frequency, urgency, hesitancy, hematuria, flank pain, genital pain MUSCULOSKELETAL: Absent: myalgia, arthralgia, joint swelling, back pain, neck pain SKIN: Absent: rash, itching, pallor HEMATOLOGIC/IMMUNOLOGIC: Absent: easy bleeding, easy bruising, lymphadenopathy, frequent infections ENDOCRINE: Absent: unexplained weight gain, unexplained weight loss, heat intolerance, cold intolerance NEUROLOGIC: Absent: headache, focal weakness or paresthesias, dizziness, unsteady gait, seizure, mental status changes, bladder or bowel incontinence PSYCHIATRIC: Absent: anxiety, depression, suicidal or homicidal ideation, hallucinations. PHYSICAL EXAMINATION Vital Signs - 24 hr 02/28/18 02/28/18 19:39 22:31 Temperature 100.1 F H 99.1 F Pulse Rate 109 H Pulse Rate [ 93 H Radial] Respiratory 19 18 Rate Blood Pressure 182/90 H Blood Pressure 159/65 [Arm] O2 Sat by Pulse 95 96 Oximetry (%) GENERAL: Awake, alert, and fully oriented, in no acute distress HEAD: left cheek scar EYES: Pupils equal, round and reactive to light, extraocular movements intact, sclera anicteric, conjunctiva clear. No lid lag. EARS, NOSE, THROAT: Ears normal, nares patent, oropharynx clear without exudates. Moist mucous membranes. NECK: Normal range of motion, supple without lymphadenopathy, JVD, or masses. LUNGS: Breath sounds equal, clear to auscultation bilaterally. No wheezes, and no crackles. No accessory muscle use. HEART: Regular rate and rhythm, normal S1 and S2 without murmur, rub or gallop. ABDOMEN: Soft, nontender, not distended, normoactive bowel sounds, no guarding, no rebound, no masses. No hepatomegaly or splenomegaly. Sacrum- tender to palpation of posterior sacrum MUSCULOSKELETAL: Normal range of motion at all joints. No bony deformities or tenderness. No CVA tenderness. UPPER EXTREMITIES: 2+ pulses, warm, well-perfused. No cyanosis. No clubbing. No peripheral edema. LOWER EXTREMITIES: 2+ pulses, warm, well-perfused. No calf tenderness. No peripheral edema. NEUROLOGICAL: Cranial nerves II-XII intact. Normal speech. Normal gait. PSYCHIATRIC: Cooperative. Good eye contact. Appropriate mood and affect. SKIN: ecchymosis on left upper ext Laboratory Results - last 24 hr 02/28/18 02/28/18 02/28/18 20:50 20:50 21:00 WBC 12.3 H RBC 2.57 L Hgb 8.4 L Hct 25.4 L D MCV 98.6 H MCH 32.6 MCHC 33.1 RDW 15.0 Plt Count 118 L MPV 8.0 Absolute Neuts (auto) 11.9 Neutrophils % No Result Required. Neutrophils % (Manual) 92.0 H* Band Neutrophils % 5.0 Lymphocytes % No Result Required. Lymphocytes % (Manual) 3.0 L Platelet Estimate Slt decrease Sodium 129 L Potassium 3.8 Chloride 105 Carbon Dioxide 21 L Anion Gap 3 L BUN 24 H Creatinine 1.0 Creat Clearance w eGFR 53.35 Random Glucose 111 H D Calcium 8.4 Total Bilirubin 0.6 AST 131 H D ALT 118 H D Alkaline Phosphatase 70 D Creatine Kinase Troponin I 0.04 Total Protein 6.2 L Albumin 3.3 L Urine Color Urine Appearance Urine pH Ur Specific [place] Urine Protein Urine Glucose (UA) Urine Ketones Urine Blood Urine Nitrite Urine Bilirubin Urine Urobilinogen Ur Leukocyte Esterase Urine RBC Urine WBC Urine Bacteria 02/28/18 02/28/18 21:00 21:20 WBC RBC Hgb Hct MCV MCH MCHC RDW Plt Count MPV Absolute Neuts (auto) Neutrophils % Neutrophils % (Manual) Band Neutrophils % Lymphocytes % Lymphocytes % (Manual) Platelet Estimate Sodium Potassium Chloride Carbon Dioxide Anion Gap BUN Creatinine Creat Clearance w eGFR Random Glucose Calcium Total Bilirubin AST ALT Alkaline Phosphatase Creatine Kinase 71 Troponin I Total Protein Albumin Urine Color Yellow Urine Appearance Clear Urine pH 5.5 Ur Specific [place] 1.020 Urine Protein 3+ H Urine Glucose (UA) Negative Urine Ketones Negative Urine Blood 3+ H Urine Nitrite Positive Urine Bilirubin Negative Urine Urobilinogen 0.2 Ur Leukocyte Esterase 1+ H Urine RBC 10-20 Urine WBC 60-100 Urine Bacteria 4+ imaging studies reviewed ASSESSMENT/PLAN: #Sepsis secondary to urinary tract infection- stable for admission to floor. Lactate wnl. Grossly + UA and urine, blood cultures pending. -blood cultures -urine culture -ceftriaxone 1g IV daily -monitor VS closely -tylenol po prn if fever #Fall-CK was wnl, do not suspect rhabdo. Posterior sacrum tender to palpation, r /o fracture. Head CT was wnl. Fall may be secondary to weakness from hyponatremia and/or from recent chemotherapy. -fall precautions -bed rest -CT of pelvis to r/o fracture -consider to d/c xarelto if persistent falls -PT evaluation #HYponatremia -urine osm -serum osm -tsh -i/o -ira;y weights -gentle IV fluid hydration -monitor Na #HTN - uncontrolled -2g Na diet -c/w olmesartan -tirate BP meds if still uncontrolled #Hx of DVT in lower ext -c/w xarelto #intrabdominal malignancy- colon? -obtain medical records from [facility] during day #DVT ppx- already on xarelto Visit type - Emergency Visit Emergency Visit: Yes ED Registration Date: 02/28/18 Care time: The patient presented to the Emergency Department on the above date and was hospitalized for further evaluation of their emergent condition. - New Patient This patient is new to me today: Yes Date on this admission: 03/01/18 - Critical Care Critical Care patient: No
[2018-02-28] MEDS ORDERED: ACETAMINOPHEN 500 MG TABLET (FP) PO PRN (23:30)
[2018-02-28] MEDS ORDERED: SODIUM CHLORIDE 1,000 ML IV SCH (23:45)
[2018-02-28 23:53] VITALS: BMI 24.8
--- NOTE | 2018-03-01 08:37 | EKG ---
Test Reason : Blood Pressure : / mmHG Vent. Rate : 095 BPM Atrial Rate : 095 BPM P-R Int : 234 ms QRS Dur : 114 ms QT Int : 360 ms P-R-T Axes : 068 -46 077 degrees QTc Int : 452 ms SINUS RHYTHM WITH 1ST DEGREE A-V BLOCK LEFT AXIS DEVIATION INCOMPLETE RIGHT BUNDLE BRANCH BLOCK ANTEROSEPTAL INFARCT (CITED ON OR BEFORE 12-FEB-2018) ABNORMAL ECG WHEN COMPARED WITH ECG OF 12-FEB-2018 19:24, NM INTERVAL HAS INCREASED INCOMPLETE RIGHT BUNDLE BRANCH BLOCK IS NOW PRESENT Confirmed by CATALINA YOUNG, JASIEL ([id number]) on 03/01/2018 8:36:58 AM Referred By: DR CASTRO Confirmed By:JASIEL ARNOLD MD
[2018-03-01 09:24] LABS: HEMATOCRIT 22.3 % (32.4-45.2); HEMOGLOBIN 7.4 GM/dl (10.7-15.3); MCH 33.2 pg (25.7-33.7); MCHC 33.3 g/dl (32.0-36.0); MEAN CELL VOLUME 99.5 fl (80-96); MEAN PLT VOLUME 8.7 fl (7.5-11.1); PLATELET COUNT 96 K/MM3 (134-434); RBC 2.24 M/mm3 (3.60-5.2); WHITE BLOOD COUNT 12.8 K/mm3 (4.0-10.8)
[2018-03-01 09:31] LABS: ANION GAP 6 MMOL/L (8-16); BLOOD UREA NITROGEN 23 mg/dl (7-18); CALCIUM 7.9 mg/dl (8.4-10.2); CHLORIDE 103 mmol/L (98-107); CO2 22 mmol/L (22-28); CREATININE 1.1 mg/dl (0.6-1.3); GLUCOSE,RANDOM 87 mg/dl (74-106); POTASSIUM 3.7 mmol/L (3.5-5.1); SODIUM 131 mmol/L (136-145)
[2018-03-01 09:39] LABS: ALBUMIN 2.8 g/dl (3.5-5.0); BILIRUBIN,DIRECT 0.2 mg/dL (0.0-0.3); BILIRUBIN,TOTAL 0.4 mg/dl (0.2-1.0); TOT PROT 5.3 g/dl (6.4-8.3)
[2018-03-01] MEDS: VALSARTAN 160 MG TABLET (UD) PO SCH (10:00)
[2018-03-01] MEDS ORDERED: HEPARIN NA (PORCINE) 5,000 UNITS/ML 1ML VIAL SQ SCH (10:00)
[2018-03-01] MEDS ORDERED: RIVAROXABAN 2.5 MG TABLET PO SCH (10:00)
[2018-03-01] MEDS: CEFTRIAXONE 1,000 MG in DEXTROSE 5%-WATER - 50 ML IVPB SCH (10:10)
--- NOTE | 2018-03-01 12:12 | PN ---
Physical Exam: SUBJECTIVE: Patient seen and examined at bedside. Son and grandson present. Patient wants to leave. Lengthy discussion about need to stay to be treated with IV antibiotics. Family encouraging patient to stay. OBJECTIVE: Vital Signs Period Temp Pulse Resp BP Sys/Pathak Pulse Ox Last 24 Hr 98.2 F-100.1 F 87-109 18-19 140-182/49-90 95-96 GENERAL: The patient is awake, alert, and fully oriented, in no acute distress. LUNGS: CTA; no accessory muscle use. HEART: Regular rate and rhythm, S1, S2 ABDOMEN: Abdominal hernias soft, reducible, abdominal binder EXTREMITIES: 1+ bilateral lower extremity edema NEUROLOGICAL: Cranial nerves II through XII grossly intact. Normal speech, gait not observed. SKIN: Ecchymosis inner left arm Laboratory Results - last 24 hr 02/28/18 02/28/18 02/28/18 20:50 20:50 21:00 WBC 12.3 H RBC 2.57 L Hgb 8.4 L Hct 25.4 L D MCV 98.6 H MCH 32.6 MCHC 33.1 RDW 15.0 Plt Count 118 L MPV 8.0 Absolute Neuts (auto) 11.9 Neutrophils % No Result Required. Neutrophils % (Manual) 92.0 H* Band Neutrophils % 5.0 Lymphocytes % No Result Required. Lymphocytes % (Manual) 3.0 L Platelet Estimate Slt decrease Sodium 129 L Potassium 3.8 Chloride 105 Carbon Dioxide 21 L Anion Gap 3 L BUN 24 H Creatinine 1.0 Creat Clearance w eGFR 53.35 Random Glucose 111 H D Lactic Acid Calcium 8.4 Total Bilirubin 0.6 Direct Bilirubin AST 131 H D ALT 118 H D Alkaline Phosphatase 70 D Creatine Kinase Troponin I 0.04 Total Protein 6.2 L Albumin 3.3 L TSH Urine Color Urine Appearance Urine pH Ur Specific [place] Urine Protein Urine Glucose (UA) Urine Ketones Urine Blood Urine Nitrite Urine Bilirubin Urine Urobilinogen Ur Leukocyte Esterase Urine RBC Urine WBC Urine Bacteria 02/28/18 02/28/18 02/28/18 21:00 21:20 23:00 WBC RBC Hgb Hct MCV MCH MCHC RDW Plt Count MPV Absolute Neuts (auto) Neutrophils % Neutrophils % (Manual) Band Neutrophils % Lymphocytes % Lymphocytes % (Manual) Platelet Estimate Sodium Potassium Chloride Carbon Dioxide Anion Gap BUN Creatinine Creat Clearance w eGFR Random Glucose Lactic Acid 0.8 Calcium Total Bilirubin Direct Bilirubin AST ALT Alkaline Phosphatase Creatine Kinase 71 Troponin I Total Protein Albumin TSH Urine Color Yellow Urine Appearance Clear Urine pH 5.5 Ur Specific [place] 1.020 Urine Protein 3+ H Urine Glucose (UA) Negative Urine Ketones Negative Urine Blood 3+ H Urine Nitrite Positive Urine Bilirubin Negative Urine Urobilinogen 0.2 Ur Leukocyte Esterase 1+ H Urine RBC 10-20 Urine WBC 60-100 Urine Bacteria 4+ 03/01/18 03/01/18 03/01/18 08:15 08:15 08:15 WBC 12.8 H RBC 2.24 L Hgb 7.4 L Hct 22.3 L MCV 99.5 H MCH 33.2 MCHC 33.3 RDW 15.0 Plt Count 96 L MPV 8.7 Absolute Neuts (auto) Neutrophils % Neutrophils % (Manual) Band Neutrophils % Lymphocytes % Lymphocytes % (Manual) Platelet Estimate Sodium 131 L Potassium 3.7 Chloride 103 Carbon Dioxide 22 Anion Gap 6 L BUN 23 H Creatinine 1.1 Creat Clearance w eGFR 47.79 Random Glucose 87 D Lactic Acid Calcium 7.9 L Total Bilirubin Direct Bilirubin AST ALT Alkaline Phosphatase Creatine Kinase Troponin I Total Protein Albumin TSH 1.27 Urine Color Urine Appearance Urine pH Ur Specific [place] Urine Protein Urine Glucose (UA) Urine Ketones Urine Blood Urine Nitrite Urine Bilirubin Urine Urobilinogen Ur Leukocyte Esterase Urine RBC Urine WBC Urine Bacteria 03/01/18 08:15 WBC RBC Hgb Hct MCV MCH MCHC RDW Plt Count MPV Absolute Neuts (auto) Neutrophils % Neutrophils % (Manual) Band Neutrophils % Lymphocytes % Lymphocytes % (Manual) Platelet Estimate Sodium Potassium Chloride Carbon Dioxide Anion Gap BUN Creatinine Creat Clearance w eGFR Random Glucose Lactic Acid Calcium Total Bilirubin 0.4 Direct Bilirubin 0.2 AST 100 H D ALT 110 H Alkaline Phosphatase 61 Creatine Kinase Troponin I Total Protein 5.3 L Albumin 2.8 L TSH Urine Color Urine Appearance Urine pH Ur Specific [place] Urine Protein Urine Glucose (UA) Urine Ketones Urine Blood Urine Nitrite Urine Bilirubin Urine Urobilinogen Ur Leukocyte Esterase Urine RBC Urine WBC Urine Bacteria Active Medications Generic Name Dose Route Start Last Admin Trade Name Freq PRN Reason Stop Dose Admin Ceftriaxone Sodium 1,000 mg/ 50 mls @ 100 mls/hr 03/01/18 10:00 Dextrose IVPB DAILY GAIL Sodium Chloride 1,000 mls @ 75 mls/hr 02/28/18 23:45 03/01/18 01:00 Normal Saline - IV 75 mls/hr ASDIR GAIL Administration Rivaroxaban 2.5 mg 03/01/18 10:00 Xarelto PO DAILY GAIL Valsartan 320 mg 03/01/18 10:00 Diovan - PO DAILY GAIL Assessment & Plan 82 year-old female with a PMH significant for Stage IV metastatic cancer of uncertain origin, last chemotherapy 02/26/18, h/o DVT. Admitted for sepsis secondary to UTI. Sepsis secondary to E. coli UTI --was seen in ED on 02/12 for UTI and signed out AMA; given script for Macorobid x 7 days which patient states she completed; 02/12 urine culture (+) E. coli --WBC 12.8k, p 92, pyuria on this admission, cultures pending --continue ceftriaxone (day #2) Metastatic disease Anemia Thrombocytopenia --oncoloigst is Dr. Cristy Garcia at [facility] ([phone]); called and spoke with magali Claros MD: transfuse 2U PRBC for Hgb 7.4; discussed US abdominal findings, nothing acute s/p Fall --imaging negative for acute findings Hyponatremia --appears slightly volume overloaded --stop IV fluids --continue to trend Hypertension --continue Valsartan h/o DVT --no longer on Xarelto, on lovenox BID, continue FEN Fluids: PO intake adequate Electrolytes: replete as indicated Nutrition: low sodium DVT prophylaxis: on lovenox 80mg BID Physical therapy Dispo: continues to require inpatient care. Full code. Visit type - Emergency Visit Emergency Visit: Yes ED Registration Date: 02/28/18 Care time: The patient presented to the Emergency Department on the above date and was hospitalized for further evaluation of their emergent condition. - New Patient This patient is new to me today: Yes Date on this admission: 03/02/18 - Critical Care Critical Care patient: No
[2018-03-01] MEDS ORDERED: FUROSEMIDE 40 MG TABLET (FP) PO ONE (13:00)
[2018-03-01] MEDS: ENOXAPARIN NA (PORCINE) 80 MG/0.8 ML DISP.SYRIN SQ SCH (20:32)
[2018-03-01] MEDS ORDERED: FUROSEMIDE 40 MG/4 ML INJECTABLE VIAL ONE (23:01)
[2018-03-02 06:37] LABS: HBSAG SCREEN Negative (Negative); HEP B CORE AB, TOT Negative (Negative)
[2018-03-02] MEDS: ENOXAPARIN NA (PORCINE) 80 MG/0.8 ML DISP.SYRIN SQ SCH ×2 (07:00→19:26)
[2018-03-02] MEDS: VALSARTAN 160 MG TABLET (UD) PO SCH (09:27)
[2018-03-02] MEDS: CEFTRIAXONE 1,000 MG in DEXTROSE 5%-WATER - 50 ML IVPB SCH (09:28)
[2018-03-02 12:59] LABS: BASO % 0.2 % (0-2.0); EOS % 0.7 % (0-4.5); HEMATOCRIT 29.6 % (32.4-45.2); HEMOGLOBIN 9.7 GM/dl (10.7-15.3); LYMPH % 9.3 % (8-40); MCH 31.3 pg (25.7-33.7); MCHC 32.8 g/dl (32.0-36.0); MEAN CELL VOLUME 95.4 fl (80-96); NEUT % 88.8 % (42.8-82.8); PLATELET COUNT 131 K/MM3 (134-434); RDW 16.7 % (11.6-15.6); WHITE BLOOD COUNT 13.2 K/mm3 (4.0-10.8)
--- NOTE | 2018-03-02 13:02 | PN ---
Progress Note (short form) - Note Progress Note: Subjective: The patient was seen at the bedside, she states she is feeling " much better" today. Current Medications Generic Name Dose Route Start Last Admin Trade Name Enma PRN Reason Stop Dose Admin Enoxaparin Sodium 80 mg 03/01/18 19:00 03/02/18 07:00 Lovenox - SQ 80 mg Q12H GAIL Administration Ceftriaxone Sodium 1,000 mg/ 50 mls @ 100 mls/hr 03/01/18 10:00 03/02/18 09: 28 Dextrose IVPB 100 mls/hr DAILY GAIL Administration Valsartan 320 mg 03/01/18 10:00 03/02/18 09:27 Diovan - PO 320 mg DAILY GAIL Administration Objective: Vital Signs Period Temp Pulse Resp BP Sys/Pathak Pulse Ox Last 24 Hr 98.6 F-100 F 82-101 17-19 144-161/54-60 95-97 Physical Exam: General: NAD, A&Ox3 Lungs: CTA bilaterally Heart: RRR, S1S2 Abd: Soft, non-tender, non-distended. Normoactive bowel sounds Ext: 1+ b/l lower extremity edema CBCD WBC 12.8 K/mm3 (4.0-10.8) H 03/01/18 08:15 RBC 2.24 M/mm3 (3.60-5.2) L 03/01/18 08:15 Hgb 7.4 GM/dl (10.7-15.3) L 03/01/18 08:15 Hct 22.3 % (32.4-45.2) L 03/01/18 08:15 MCV 99.5 fl (80-96) H 03/01/18 08:15 MCHC 33.3 g/dl (32.0-36.0) 03/01/18 08:15 RDW 15.0 % (11.6-15.6) 03/01/18 08:15 Plt Count 96 K/MM3 (134-434) L 03/01/18 08:15 MPV 8.7 fl (7.5-11.1) 03/01/18 08:15 CMP Sodium 131 mmol/L (136-145) L 03/01/18 08:15 Potassium 3.7 mmol/L (3.5-5.1) 03/01/18 08:15 Chloride 103 mmol/L (98-107) 03/01/18 08:15 Carbon Dioxide 22 mmol/L (22-28) 03/01/18 08:15 Anion Gap 6 MMOL/L (8-16) L 03/01/18 08:15 BUN 23 mg/dl (7-18) H 03/01/18 08:15 Creatinine 1.1 mg/dl (0.6-1.3) 03/01/18 08:15 Creat Clearance w eGFR 47.79 (>60) 03/01/18 08:15 Random Glucose 87 mg/dl (74-106) D 03/01/18 08:15 Calcium 7.9 mg/dl (8.4-10.2) L 03/01/18 08:15 Total Bilirubin 0.4 mg/dl (0.2-1.0) 03/01/18 08:15 AST 100 U/L (10-42) H D 03/01/18 08:15 ALT 110 U/L (10-40) H 03/01/18 08:15 Alkaline Phosphatase 61 U/L (32-92) 03/01/18 08:15 Total Protein 5.3 g/dl (6.4-8.3) L 03/01/18 08:15 Albumin 2.8 g/dl (3.5-5.0) L 03/01/18 08:15 CARDIAC ENZYMES Creatine Kinase 71 IU/L (26-192) 02/28/18 21:00 Troponin I 0.04 ng/ml (0.00-0.06) 02/28/18 21:00 Microbiology 02/28/18 21:20 Urine - Urine Clean Catch Urine Culture - Preliminary Non Lactose Fermenting Gnb 02/28/18 21:00 Blood - Peripheral Venous Blood Culture - Preliminary NO GROWTH OBTAINED AFTER 24 HOURS, INCUBATION TO CONTINUE FOR 4 DAYS. 02/28/18 20:50 Blood - Peripheral Venous Blood Culture - Preliminary NO GROWTH OBTAINED AFTER 24 HOURS, INCUBATION TO CONTINUE FOR 4 DAYS. Assessment: This is an 82 year old female with PMHx of metastatic cancer of unknown primary, DVT, who presented to the ED with fever and chills and was found to have a UTI. Plan: 1) UTI - Was seen in the ED on 02/12 and diagnosed with a UTI, left AMA with Rx for Macrobid x7 days. Urine culture from that day with caputo-sensitive E.coli - Prelim urine culture from this admission with non-lactose fermenting GNB - Continue Ceftriaxone - Follow CBC - Tmax 100 03/01 at 1800 2) Anemia likely 2/2 metastatic cancer - S/p 2u PRBC, awaiting H/H from today - Thrombocytopenia: downtrending, awaiting level from today. Continue Lovenox for now (Hx of DVT) - Per [facility] note, imaging reviewed with patient's covering oncologist at [facility] [place] , no acute findings noted 3) HTN - Continue Valsartan 4) F/E/N: - Sodium controlled diet - Hyponatremia: improved yesterday, awaiting labs from today - Monitor electrolytes 5) Prophylaxis: - OOB ambulating - On Lovenox 6) Dispo: - Requires continued inpatient care CODE STATUS: FULL CODE Visit type - Emergency Visit Emergency Visit: Yes ED Registration Date: 02/28/18 Care time: The patient presented to the Emergency Department on the above date and was hospitalized for further evaluation of their emergent condition. - New Patient This patient is new to me today: Yes Date on this admission: 03/02/18 - Critical Care Critical Care patient: No
[2018-03-02 13:03] LABS: ANION GAP 7 MMOL/L (8-16); BLOOD UREA NITROGEN 25 mg/dl (7-18); CALCIUM 8.3 mg/dl (8.4-10.2); CHLORIDE 105 mmol/L (98-107); CO2 22 mmol/L (22-28); GLUCOSE,RANDOM 105 mg/dl (74-106); POTASSIUM 3.6 mmol/L (3.5-5.1); SODIUM 134 mmol/L (136-145)
[2018-03-02 13:19] LABS: ALBUMIN 2.7 g/dl (3.5-5.0); BILIRUBIN,DIRECT 0.3 mg/dL (0.0-0.3); TOT PROT 5.7 g/dl (6.4-8.3)
[2018-03-03] MEDS: ENOXAPARIN NA (PORCINE) 80 MG/0.8 ML DISP.SYRIN SQ SCH ×2 (06:39→19:00)
[2018-03-03 07:17] LABS: EOS % 1.9 % (0-4.5); HEMATOCRIT 25.8 % (32.4-45.2); HEMOGLOBIN 8.6 GM/dl (10.7-15.3); MCHC 33.2 g/dl (32.0-36.0)
[2018-03-03 07:24] LABS: BASO % 0.3 % (0-2.0); LYMPH % 15.3 % (8-40); MCH 31.7 pg (25.7-33.7); MEAN CELL VOLUME 95.5 fl (80-96); MONO % 2.6 % (3.8-10.2); NEUT % 79.9 % (42.8-82.8); PLATELET COUNT 131 K/MM3 (134-434); RDW 16.7 % (11.6-15.6); WHITE BLOOD COUNT 9.9 K/mm3 (4.0-10.8)
[2018-03-03 07:49] LABS: ALBUMIN 2.5 g/dl (3.5-5.0); ALK PHOS 75 U/L (32-92); ANION GAP 7 MMOL/L (8-16); BILIRUBIN,TOTAL 0.6 mg/dl (0.2-1.0); BLOOD UREA NITROGEN 22 mg/dl (7-18); CALCIUM 8.2 mg/dl (8.4-10.2); CHLORIDE 104 mmol/L (98-107); CO2 22 mmol/L (22-28); GLUCOSE,RANDOM 97 mg/dl (74-106); POTASSIUM 3.4 mmol/L (3.5-5.1); SGOT/AST 31 U/L (10-42); SGPT/ALT 69 U/L (10-40); SODIUM 133 mmol/L (136-145); TOT PROT 5.2 g/dl (6.4-8.3)
[2018-03-03] MEDS: VALSARTAN 160 MG TABLET (UD) PO SCH (09:54)
[2018-03-03] MEDS: CEFTRIAXONE 1,000 MG in DEXTROSE 5%-WATER - 50 ML IVPB SCH (09:55)
[2018-03-03] MEDS ORDERED: SODIUM PHOSPHATE/NA BIPHOS 133 ML ENEMA PR PRN (10:16)
[2018-03-03] MEDS ORDERED: BISACODYL 10 MG SUPP.RECT RC ONE (10:16)
[2018-03-03] MEDS ORDERED: CEFTRIAXONE 1 G/50 ML PREMIX 50 ML IVPB SCH (10:37)
[2018-03-03] MEDS: POLYETHYLENE GLYCOL 3350 119 GM BTL PO SCH ×2 (11:00→21:10)
--- NOTE | 2018-03-03 16:06 | PN ---
Physical Exam: SUBJECTIVE: Patient seen and examined. Complains of constipation. OBJECTIVE: Vital Signs Period Temp Pulse Resp BP Sys/Pathak Pulse Ox Last 24 Hr 98.8 F-99.1 F 85-96 16-18 147-158/57-72 95-99 GENERAL: The patient is awake, alert, and fully oriented, in no acute distress. LUNGS: CTA; no accessory muscle use. HEART: Regular rate and rhythm, S1, S2 ABDOMEN: Abdominal hernias soft, reducible, abdominal binder EXTREMITIES: 1+ bilateral lower extremity edema NEUROLOGICAL: Cranial nerves II through XII grossly intact. Normal speech, gait not observed. SKIN: Ecchymosis inner left arm Laboratory Results - last 24 hr 03/03/18 03/03/18 07:00 07:00 WBC 9.9 RBC 2.70 L Hgb 8.6 L Hct 25.8 L MCV 95.5 MCH 31.7 MCHC 33.2 RDW 16.7 H Plt Count 131 L MPV 8.0 Absolute Neuts (auto) 7.9 Neutrophils % 79.9 Lymphocytes % 15.3 Monocytes % 2.6 L Eosinophils % 1.9 Basophils % 0.3 Sodium 133 L Potassium 3.4 L Chloride 104 Carbon Dioxide 22 Anion Gap 7 L BUN 22 H Creatinine 1.0 Creat Clearance w eGFR 53.35 Random Glucose 97 Calcium 8.2 L Total Bilirubin 0.6 AST 31 D ALT 69 H D Alkaline Phosphatase 75 Total Protein 5.2 L Albumin 2.5 L Active Medications Generic Name Dose Route Start Last Admin Trade Name Freq PRN Reason Stop Dose Admin Docusate Sodium 300 mg 03/03/18 22:00 Colace - PO HS GAIL Enoxaparin Sodium 80 mg 03/01/18 19:00 03/03/18 06:39 Lovenox - SQ 80 mg Q12H GAIL Administration Ceftriaxone Sodium 50 mls @ 100 mls/hr 03/03/18 10:37 Ceftriaxone 1 Gm-D5w Bag IVPB DAILY GAIL Polyethylene Glycol 17 gm 03/03/18 10:30 03/03/18 11:00 Miralax (For Daily Use) - PO 17 gm BID GAIL Administration Sodium Phosphate 133 ml 03/03/18 10:16 Fleet Adult Rectal Enema - OR ONCE PRN CONSTIPATION Valsartan 320 mg 03/01/18 10:00 03/03/18 09:54 Diovan - PO 320 mg DAILY GAIL Administration ASSESSMENT/PLAN 82 year-old female with a PMH significant for Stage IV metastatic cancer of uncertain origin, last chemotherapy 02/26/18, h/o DVT. Admitted for sepsis secondary to UTI. Sepsis secondary to E. coli UTI --afebrile, leukocytosis resolved --continue ceftriaxone (day #3) Metastatic disease Anemia Thrombocytopenia --1/ transfused 2 U with good response 7.4-->9.7, but drop today to 8.6 --[place]. Cristy Garcia [place] [facility] [place][phone][place] will get CT scan to r/o intra-abdominal or retroperitoneal bleed (on Lovenox) --repeat cbc in am s/p Fall --imaging negative for acute findings Hyponatremia --improved, continue to trend Hypertension --continue Valsartan h/o DVT --no longer on Xarelto, on lovenox BID, continue FEN Fluids: PO intake adequate Electrolytes: replete as indicated Nutrition: low sodium DVT prophylaxis: on lovenox 80mg BID Physical therapy Dispo: continues to require inpatient care. Full code. Visit type - Emergency Visit Emergency Visit: Yes ED Registration Date: 02/28/18 Care time: The patient presented to the Emergency Department on the above date and was hospitalized for further evaluation of their emergent condition. - New Patient This patient is new to me today: No - Critical Care Critical Care patient: No
[2018-03-03] MEDS ORDERED: DOCUSATE SODIUM 100 MG CAPSULE (FP) PO SCH (22:00)
[2018-03-04 08:05] LABS: BASO % 1.2 % (0-2.0); EOS % 3.8 % (0-4.5); MCH 31.9 pg (25.7-33.7); MCHC 33.4 g/dl (32.0-36.0); MEAN CELL VOLUME 95.7 fl (80-96); MEAN PLT VOLUME 7.7 fl (7.5-11.1); MONO % 9.9 % (3.8-10.2); NEUT % 51.1 % (42.8-82.8); PLATELET COUNT 118 K/MM3 (134-434); RBC 2.82 M/mm3 (3.60-5.2); RDW 16.2 % (11.6-15.6); WHITE BLOOD COUNT 4.8 K/mm3 (4.0-10.8)
[2018-03-04 08:40] LABS: ALBUMIN 2.5 g/dl (3.5-5.0); ANION GAP 6 MMOL/L (8-16); BILIRUBIN,TOTAL 0.4 mg/dl (0.2-1.0); BLOOD UREA NITROGEN 22 mg/dl (7-18); CALCIUM 8.6 mg/dl (8.4-10.2); CHLORIDE 107 mmol/L (98-107); CO2 23 mmol/L (22-28); CREATININE 0.9 mg/dl (0.6-1.3); GLUCOSE,RANDOM 93 mg/dl (74-106); MAGNESIUM 1.9 mg/dL (1.8-2.4); POTASSIUM 3.8 mmol/L (3.5-5.1); SGOT/AST 30 U/L (10-42); SGPT/ALT 56 U/L (10-40); SODIUM 136 mmol/L (136-145); TOT PROT 5.3 g/dl (6.4-8.3)
[2018-03-04 08:49] LABS: ALK PHOS 75 U/L (32-92)
[2018-03-04] MEDS: POLYETHYLENE GLYCOL 3350 119 GM BTL PO SCH (09:03)
[2018-03-04] MEDS: VALSARTAN 160 MG TABLET (UD) PO SCH (09:04)
--- NOTE | 2018-03-04 10:10 | DS ---
Physical Exam: SUBJECTIVE: Patient seen and examined at bedside. Feels well. OBJECTIVE: Vital Signs Period Temp Pulse Resp BP Sys/Pathak Pulse Ox Last 24 Hr 98.0 F-99.1 F 86-94 16-20 147-178/62-76 95-99 PHYSICAL EXAM GENERAL: The patient is awake, alert, and fully oriented, in no acute distress. LUNGS: CTA; no accessory muscle use. HEART: Regular rate and rhythm, S1, S2 ABDOMEN: Abdominal hernias soft, reducible, abdominal binder EXTREMITIES: 1+ bilateral lower extremity edema NEUROLOGICAL: Cranial nerves II through XII grossly intact. Normal speech, gait not observed. Laboratory Tests - All - Entire Visit 02/28/18 02/28/18 02/28/18 20:50 20:50 21:00 WBC 12.3 H RBC 2.57 L Hgb 8.4 L Hct 25.4 L D MCV 98.6 H MCH 32.6 MCHC 33.1 RDW 15.0 Plt Count 118 L MPV 8.0 Absolute Neuts (auto) 11.9 Neutrophils % No Result Required. Neutrophils % (Manual) 92.0 H* Band Neutrophils % 5.0 Lymphocytes % No Result Required. Lymphocytes % (Manual) 3.0 L Monocytes % Eosinophils % Basophils % Platelet Estimate Slt decrease Sodium 129 L Potassium 3.8 Chloride 105 Carbon Dioxide 21 L Anion Gap 3 L BUN 24 H Creatinine 1.0 Creat Clearance w eGFR 53.35 Random Glucose 111 H D Serum Osmolality Lactic Acid Calcium 8.4 Magnesium Total Bilirubin 0.6 Direct Bilirubin AST 131 H D ALT 118 H D Alkaline Phosphatase 70 D Creatine Kinase Troponin I 0.04 Total Protein 6.2 L Albumin 3.3 L TSH Urine Color Urine Appearance Urine pH Ur Specific [place] Urine Protein Urine Glucose (UA) Urine Ketones Urine Blood Urine Nitrite Urine Bilirubin Urine Urobilinogen Ur Leukocyte Esterase Urine RBC Urine WBC Urine Bacteria Hepatitis A Ab Total Hep Bs Antigen Hep Bs Antibody Hep B Core Total Ab Blood Type Antibody Screen Crossmatch 02/28/18 02/28/18 02/28/18 21:00 21:20 23:00 WBC RBC Hgb Hct MCV MCH MCHC RDW Plt Count MPV Absolute Neuts (auto) Neutrophils % Neutrophils % (Manual) Band Neutrophils % Lymphocytes % Lymphocytes % (Manual) Monocytes % Eosinophils % Basophils % Platelet Estimate Sodium Potassium Chloride Carbon Dioxide Anion Gap BUN Creatinine Creat Clearance w eGFR Random Glucose Serum Osmolality Lactic Acid 0.8 Calcium Magnesium Total Bilirubin Direct Bilirubin AST ALT Alkaline Phosphatase Creatine Kinase 71 Troponin I Total Protein Albumin TSH Urine Color Yellow Urine Appearance Clear Urine pH 5.5 Ur Specific [place] 1.020 Urine Protein 3+ H Urine Glucose (UA) Negative Urine Ketones Negative Urine Blood 3+ H Urine Nitrite Positive Urine Bilirubin Negative Urine Urobilinogen 0.2 Ur Leukocyte Esterase 1+ H Urine RBC 10-20 Urine WBC 60-100 Urine Bacteria 4+ Hepatitis A Ab Total Hep Bs Antigen Hep Bs Antibody Hep B Core Total Ab Blood Type Antibody Screen Crossmatch 03/01/18 03/01/18 03/01/18 08:15 08:15 08:15 WBC 12.8 H RBC 2.24 L Hgb 7.4 L Hct 22.3 L MCV 99.5 H MCH 33.2 MCHC 33.3 RDW 15.0 Plt Count 96 L MPV 8.7 Absolute Neuts (auto) Neutrophils % Neutrophils % (Manual) Band Neutrophils % Lymphocytes % Lymphocytes % (Manual) Monocytes % Eosinophils % Basophils % Platelet Estimate Sodium 131 L Potassium 3.7 Chloride 103 Carbon Dioxide 22 Anion Gap 6 L BUN 23 H Creatinine 1.1 Creat Clearance w eGFR 47.79 Random Glucose 87 D Serum Osmolality 281 Lactic Acid Calcium 7.9 L Magnesium Total Bilirubin Direct Bilirubin AST ALT Alkaline Phosphatase Creatine Kinase Troponin I Total Protein Albumin TSH 1.27 Urine Color Urine Appearance Urine pH Ur Specific [place] Urine Protein Urine Glucose (UA) Urine Ketones Urine Blood Urine Nitrite Urine Bilirubin Urine Urobilinogen Ur Leukocyte Esterase Urine RBC Urine WBC Urine Bacteria Hepatitis A Ab Total Hep Bs Antigen Hep Bs Antibody Hep B Core Total Ab Blood Type Antibody Screen Crossmatch 03/01/18 03/01/18 03/01/18 08:15 08:15 13:40 WBC RBC Hgb Hct MCV MCH MCHC RDW Plt Count MPV Absolute Neuts (auto) Neutrophils % Neutrophils % (Manual) Band Neutrophils % Lymphocytes % Lymphocytes % (Manual) Monocytes % Eosinophils % Basophils % Platelet Estimate Sodium Potassium Chloride Carbon Dioxide Anion Gap BUN Creatinine Creat Clearance w eGFR Random Glucose Serum Osmolality Lactic Acid Calcium Magnesium Total Bilirubin 0.4 Direct Bilirubin 0.2 AST 100 H D ALT 110 H Alkaline Phosphatase 61 Creatine Kinase Troponin I Total Protein 5.3 L Albumin 2.8 L TSH Urine Color Urine Appearance Urine pH Ur Specific [place] Urine Protein Urine Glucose (UA) Urine Ketones Urine Blood Urine Nitrite Urine Bilirubin Urine Urobilinogen Ur Leukocyte Esterase Urine RBC Urine WBC Urine Bacteria Hepatitis A Ab Total Negative Hep Bs Antigen Negative Hep Bs Antibody Non reactive Hep B Core Total Ab Negative Blood Type A POSITIVE Antibody Screen Negative Crossmatch See Detail 03/01/18 03/02/18 03/02/18 13:45 12:20 12:20 WBC 13.2 H RBC 3.10 L Hgb 9.7 L Hct 29.6 L D MCV 95.4 MCH 31.3 MCHC 32.8 RDW 16.7 H D Plt Count 131 L MPV 9.0 Absolute Neuts (auto) 11.8 Neutrophils % 88.8 H Neutrophils % (Manual) Band Neutrophils % Lymphocytes % 9.3 Lymphocytes % (Manual) Monocytes % 1.0 L Eosinophils % 0.7 Basophils % 0.2 Platelet Estimate Sodium 134 L Potassium 3.6 Chloride 105 Carbon Dioxide 22 Anion Gap 7 L BUN 25 H Creatinine 1.0 Creat Clearance w eGFR 53.35 Random Glucose 105 D Serum Osmolality Lactic Acid Calcium 8.3 L Magnesium Total Bilirubin Direct Bilirubin AST ALT Alkaline Phosphatase Creatine Kinase Troponin I Total Protein Albumin TSH Urine Color Urine Appearance Urine pH Ur Specific [place] Urine Protein Urine Glucose (UA) Urine Ketones Urine Blood Urine Nitrite Urine Bilirubin Urine Urobilinogen Ur Leukocyte Esterase Urine RBC Urine WBC Urine Bacteria Hepatitis A Ab Total Hep Bs Antigen Hep Bs Antibody Hep B Core Total Ab Blood Type A POSITIVE Antibody Screen Crossmatch 03/02/18 03/03/18 03/03/18 12:25 07:00 07:00 WBC 9.9 RBC 2.70 L Hgb 8.6 L Hct 25.8 L MCV 95.5 MCH 31.7 MCHC 33.2 RDW 16.7 H Plt Count 131 L MPV 8.0 Absolute Neuts (auto) 7.9 Neutrophils % 79.9 Neutrophils % (Manual) Band Neutrophils % Lymphocytes % 15.3 Lymphocytes % (Manual) Monocytes % 2.6 L Eosinophils % 1.9 Basophils % 0.3 Platelet Estimate Sodium 133 L Potassium 3.4 L Chloride 104 Carbon Dioxide 22 Anion Gap 7 L BUN 22 H Creatinine 1.0 Creat Clearance w eGFR 53.35 Random Glucose 97 Serum Osmolality Lactic Acid Calcium 8.2 L Magnesium Total Bilirubin 1.0 0.6 Direct Bilirubin 0.3 D AST 55 H D 31 D ALT 96 H 69 H D Alkaline Phosphatase 81 D 75 Creatine Kinase Troponin I Total Protein 5.7 L 5.2 L Albumin 2.7 L 2.5 L TSH Urine Color Urine Appearance Urine pH Ur Specific [place] Urine Protein Urine Glucose (UA) Urine Ketones Urine Blood Urine Nitrite Urine Bilirubin Urine Urobilinogen Ur Leukocyte Esterase Urine RBC Urine WBC Urine Bacteria Hepatitis A Ab Total Hep Bs Antigen Hep Bs Antibody Hep B Core Total Ab Blood Type Antibody Screen Crossmatch 03/04/18 03/04/18 07:35 07:35 WBC 4.8 RBC 2.82 L Hgb 9.0 L Hct 27.0 L MCV 95.7 MCH 31.9 MCHC 33.4 RDW 16.2 H Plt Count 118 L MPV 7.7 Absolute Neuts (auto) 2.4 Neutrophils % 51.1 Neutrophils % (Manual) Band Neutrophils % Lymphocytes % 34.0 Lymphocytes % (Manual) Monocytes % 9.9 Eosinophils % 3.8 Basophils % 1.2 Platelet Estimate Sodium 136 Potassium 3.8 Chloride 107 Carbon Dioxide 23 Anion Gap 6 L BUN 22 H Creatinine 0.9 Creat Clearance w eGFR > 60 Random Glucose 93 Serum Osmolality Lactic Acid Calcium 8.6 Magnesium 1.9 Total Bilirubin 0.4 Direct Bilirubin AST 30 ALT 56 H Alkaline Phosphatase 75 Creatine Kinase Troponin I Total Protein 5.3 L Albumin 2.5 L TSH Urine Color Urine Appearance Urine pH Ur Specific [place] Urine Protein Urine Glucose (UA) Urine Ketones Urine Blood Urine Nitrite Urine Bilirubin Urine Urobilinogen Ur Leukocyte Esterase Urine RBC Urine WBC Urine Bacteria Hepatitis A Ab Total Hep Bs Antigen Hep Bs Antibody Hep B Core Total Ab Blood Type Antibody Screen Crossmatch Microbiology 02/28/18 21:00 Blood - Peripheral Venous Blood Culture - Preliminary NO GROWTH OBTAINED AFTER 72 HOURS, INCUBATION TO CONTINUE FOR 2 DAYS. 02/28/18 20:50 Blood - Peripheral Venous Blood Culture - Preliminary NO GROWTH OBTAINED AFTER 72 HOURS, INCUBATION TO CONTINUE FOR 2 DAYS. 02/28/18 21:20 Urine - Urine Clean Catch Urine Culture - Final Escherichia Coli HOSPITAL COURSE: Date of Admission:02/28/18 Date of Discharge: 03/04/18 Pre hospital course 82yo w/ HTN, melanoma on face, right leg DVT (Nov 2017; on xarelto) and Stage 4 metastatic cancer disease (unknown origin, dx in Sep 2016) with last chemo cycle 02/26/18 reports that she fell at home, unwitnessed around 6pm on 02/28/17. She denied LOC or hitting her head. She reports falling on her sacrum. Patient layed on ground for about 1 hour and then called 911. She also c/o some chills and subjective fever since her last chemo cycle. Patient reports that she receives her oncology care at [facility] [place] with Dr. Rebollar. 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 Admitted for sepsis secondary to UTI. Sepsis secondary to E. coli UTI --was seen in ED on 02/12 for UTI and signed out AMA; given script for Macorobid x 7 days which patient states she completed (?); 02/12 urine culture ( +) E. coli --on this admission, WBC 12.8k, p 92, urine culture (+) E.coli --treated with ceftriaxone x 4 days; discharge on augmentin to complete 10 days of treatment Metastatic disease Anemia Thrombocytopenia --on 03/01 Hgb 7.4, transfused 2 U with good response 7.4-->9.7; drop in Hgb next day to 8.6, concerning since patient on lovenox; on 03/03 CTAP was done which showed no intra-abdominal or retroperitoneal bleed; h/h came back up to 9.0 on date of discharge s/p fall --imaging negative for acute findings Hyponatremia, resolved Hypertension --continued Valsartan h/o DVT --on lovenox BID Minutes to complete discharge: 35 Discharge Summary Reason For Visit: UTI, WEAKNESS, HYPONATREMIA Current Active Problems Fever (Acute) UTI (urinary tract infection) (Acute) Condition: Improved - Instructions Diet, Activity, Other Instructions: A prescription has been sent to your pharmacy for augmentin which is an antibiotic. Take this medication as directed and be sure to finish all the medication. A CD-ROM has been provided to you containing your imaging studies while a patient at [facility]. Please give this CD-ROM to Dr. Garcia at [facility]. Return to the emergency department for any new or worsening symptoms. Referrals: Cristy Garcia MD [Primary Care Provider] - Disposition: HOME - Home Medications Comprehensive Discharge Medication List: Ambulatory Orders Olmesartan Medoxomil [Benicar -] 40 mg PO DAILY 02/21/15 Gemcitabine HCl 02/12/18 Rivaroxaban [Xarelto] 2.5 mg PO DAILY 02/12/18 This patient is new to me today: No Emergency Visit: Yes ED Registration Date: 02/28/18 Care time: The patient presented to the Emergency Department on the above date and was hospitalized for further evaluation of their emergent condition. Critical Care patient: No - Discharge Referral Referred to [facility] Med [facility].C[facility] No
[2018-03-04 14:03] VITALS: BP 187/72; PULSE 82; TEMP 97.5
== END 2018-03-04 17:17 | disposition home or self-care (01) | DRG 872 ==
LOC: FER 19:38 → FM/S 22:30 → OBSVTOIN 23:29
PROVIDERS: ADMIT Internal Medicine; ATTEND Nurse Practitioner Acute Care
DX: A41.51 Sepsis due to Escherichia coli [E. coli] (principal); C78.89 Secondary malignant neoplasm of other digestive organs; E87.1 Hypo-osmolality and hyponatremia; N39.0 Urinary tract infection, site not specified; D64.9 Anemia, unspecified; D69.6 Thrombocytopenia, unspecified; A41.89 Other specified sepsis; I10 Essential (primary) hypertension; I44.0 Atrioventricular block, first degree; Z86.718 Personal history of other venous thrombosis and embolism
CPT/HCPCS: 36415; 36430; 70450-TC; 71045-TC-FY; 74176-TC; 76705-TC; 80048; 80053; 80076; 81003; 81015; 82550; 83605; 83735; 83930; 84443; 84484; 85025; 85027; 86704; 86706; 86708; 86850; 86900; 86901; 86922; 87040; 87086; 87186; 87340; 93005; 97116-GP; 97162-GP; 99283-25; G0378; J7030; P9038; P9058